=== PATIENT | male | born 1980 | race Caucasian/White ===

== ENCOUNTER → 2023-09-21 | Outpatient (CLI) | payer OTHER | END | disposition home or self-care (01) | LOC: MSR 07:50 | PROVIDERS: ATTEND Chiropractor | DX: M47.816 Spondylosis without myelopathy or radiculopathy, lumbar region (principal); M13.80 Other specified arthritis, unspecified site; E55.9 Vitamin D deficiency, unspecified; M25.572 Pain in left ankle and joints of left foot; M25.571 Pain in right ankle and joints of right foot; M54.50 Low back pain, unspecified; M41.84 Other forms of scoliosis, thoracic region; M43.8X6 Other specified deforming dorsopathies, lumbar region; M25.512 Pain in left shoulder; M25.511 Pain in right shoulder; M79.89 Other specified soft tissue disorders | CPT/HCPCS: 72070; 72100; 82306; 73030-TC; 73600-TC; 73620-TC ==